=== PATIENT | female | born 1950 | race Caucasian/White ===

== ENCOUNTER → 2022-10-13 | Outpatient (CLI) | payer MEDICARE, SELFPAY ==
[2022-10-13 07:21] LABS: Hematocrit 39.5 % (37-47); Mean Corp Hgb Conc 32.9 g/dL (32-36); Mean Corpuscular Volume 94.3 fL (81-99); Platelet Count 250 K/mm3 (150-450); RBC Distribution Width CV 13.1 % (11.6-14.6); Red Blood Count 4.19 M/mm3 (4.2-5.4); White Blood Count 6.9 K/mm3 (4.4-11.0)
[2022-10-13 08:24] LABS: Vitamin D,25 Hydroxy 51.9 ng/mL
[2022-10-13 08:27] LABS: AST(SGOT) 22 U/L (15-37); Alanine Aminotransfer ALT/SGPT 16 U/L (13-56); Albumin, Serum 3.5 g/dL (3.2-5.0); Alkaline Phosphatase 125 U/L (45-117); Anion Gap 7 (5-15); BUN 25 mg/dL (7-18); BUN/Creat Ratio 13.2 RATIO (10-20); Calcium,Total 9.2 mg/dL (8.5-10.1); Chloride 108 mmol/L (98-107); Cholesterol 231 mg/dL (200); Creatinine, Serum 1.89 mg/dL (0.55-1.02); EST Glomerular Filtration Rate 28 mL/min (>60); Est Glom Filt Rate - Afr Amer 33 mL/min (>60); Globulin 3.5 g/dL (2.2-4.2); Glucose 110 mg/dL (74-106); High Density Lipoprotein 45 mg/dL; Potassium 4.1 mmol/L (3.5-5.1); Sodium Level 141 mmol/L (136-145); T4 Free Direct 1.24 ng/dL (0.76-1.46); Thyroid Stim Hormone (TSH) 2.21 uIU/mL (0.358-3.74); Triglycerides 230 mg/dL; Very Low Density Lipoprotein 46 mg/dL (5-40)
== END | disposition home or self-care (01) ==
PROVIDERS: PCP Nurse Practitioner Adult Health; Referring Provider Nurse Practitioner Adult Health; Visit Provider Nurse Practitioner Adult Health
DX: I12.9 Hypertensive chronic kidney disease with stage 1 through stage 4 chronic kidney disease, or unspecified chronic kidney disease (principal); N18.4 Chronic kidney disease, stage 4 (severe); E55.9 Vitamin D deficiency, unspecified; E03.9 Hypothyroidism, unspecified
CPT/HCPCS: 36415; 80053; 80061; 82306; 84439; 84443; 85027

== ENCOUNTER → 2022-10-19 | Outpatient (CLI) | payer MEDICARE, SELFPAY ==
--- NOTE | 2022-10-19 07:08 | US_ITS ---
INDICATION: Cirrhosis of the liver EXAMINATION: Ultrasound US Abdomen Limited (quadrant) TECHNIQUE: Esparza scale and color doppler imaging was performed of the right upper quadrant. COMPARISON: None. FINDINGS: LIVER: The liver parenchyma is heterogenous. The liver contour is nodular. No focal hepatic lesion. There is no free fluid. GALLBLADDER AND BILIARY TREE: No shadowing gallstone, pericholecystic fluid or gallbladder wall thickening is demonstrated. The proximal common bile duct measures 5.7 mm, which is within normal limits for the patient''s age. Songraphic Rodriguez''s sign: Negative. PANCREAS: No focal abnormality is demonstrated in the pancreas. No pancreatic ductal dilatation. RIGHT KIDNEY: The right kidney measures 9.0 cm. There is no hydronephrosis. There are right renal cysts measuring up to 3.6 cm. US/Abdomen Limited IMPRESSION: Cirrhotic appearing liver. Right renal cysts. Electronically Signed: Lis Rodrigues MD at 8:19 EDT ,
== END | disposition home or self-care (01) ==
LOC: OPUS 07:07 → US 07:09
PROVIDERS: PCP Nurse Practitioner Adult Health; Referring Provider Nurse Practitioner Adult Health; Visit Provider Nurse Practitioner Adult Health
DX: K74.69 Other cirrhosis of liver (principal)
CPT/HCPCS: 76705

== ENCOUNTER → 2022-11-03 | Outpatient (CLI) | payer MEDICARE, SELFPAY ==
--- NOTE | 2022-11-03 10:45 | BD_ITS ---
STUDY: DUAL ENERGY X-RAY ABSORPTIOMETRY / DXA REASON FOR EXAM: Female, 72 years old. M81.0 TECHNIQUE: Bone Mineral Density (BMD) measurements of lumbar spine and left hip were obtained. COMPARISON: None. FINDINGS: Lumbar Spine (L1-L4): g/cm2 (1.098) / T-score (0.5) / Z-score (2.8) Findings are suggestive of normal bone density with a low fracture risk. Left Femur Total: g/cm2 (0.706) / T-score (-1.9) / Z-score (-0.2) Left Femoral Neck: g/cm2 (0.614) / T-score (-2.1) / Z-score (-0.1) BD/Dexa Bone Density Study IMPRESSION: The patient is considered osteopenic as outlined below according to World [employer] Organization (WHO) criteria with a moderate fracture risk. Reference Information: The T-score is the number of standard deviations above or below the standard which is normal for young adults at their peak bone mineral density. The World Health Organization (WHO) interprets the T-scores as follows: Above -1 Normal bone density Between -1 and -2.5 Osteopenia Equal to / or below -2.5 Osteoporosis As a practical clinical guideline, osteopenia may be graded as follows: Mild -1 through -1.5 Moderate -1.6 through -2.0 Severe -2.1 through -2.4 The Z-score is the number of standard deviations above or below age-matched controls. A Z-score of less than -1.5 would be considered abnormal. References: 1. NIH Osteoporosis and Related Bone Diseases www osteo.org 2. International Society for Clinical Densitometry www iscd.org 3. National Osteoporosis Foundation www nof.org Electronically Signed: Bucky Sutton MD at 10:48 EDT ,
== END | disposition home or self-care (01) ==
LOC: OPBD 10:34
PROVIDERS: PCP Nurse Practitioner Adult Health; Referring Provider Nurse Practitioner Adult Health; Visit Provider Nurse Practitioner Adult Health
DX: M81.0 Age-related osteoporosis without current pathological fracture (principal)
CPT/HCPCS: 77080

== ENCOUNTER 2024-07-25 15:10 | Emergency (ER) | payer MEDICARE, SELFPAY ==
[2024-07-25 15:12] VITALS: BP 182/100; PULSE 89; RESP 19; TEMP 36.4; O2SAT 97; BMI 22.7
--- NOTE | 2024-07-25 15:30 | RAD_ITS ---
PROCEDURE: CHEST PA AND LATERAL REASON FOR EXAM: Shortness of breath. TECHNIQUE: Frontal and lateral views of the chest. COMPARISON: None. FINDINGS: Lungs: Lungs clear of pneumonia and congestion. Pleura: No pleural effusions, thickening, or pneumothorax. Heart: Normal in size and configuration. Mediastinum/Mandi: Unremarkable. Great vessels: Unremarkable. Bones/soft tissues: Unremarkable. RAD/Chest PA and Lateral IMPRESSION: No active cardiopulmonary disease.. Reading Location: [place] [id number]
[2024-07-25] MEDS: Ipratropium/Albuterol Sulfate 3 ML AMPUL.NEB INHALATION (15:50)
[2024-07-25 15:54] VITALS: PULSE 94; RESP 22
[2024-07-25 18:38] LABS: Absolute Lymphocyte Count 0.44 X10^3/uL (0.83-4.51); Absolute Neutrophil Count 3.7 X10^3/uL (2.0-7.7); Basophil# 0.02 X10^3/uL; Basophil% 0.4 % (0-1); Eosinophil# 0.08 X10^3/uL; Eosinophils% 1.6 % (0-5); Hematocrit 35.4 % (37-47); Hemoglobin 11.4 g/dL (12.0-15.0); Lymphocyte # 0.44 X10^3/ul (0.83-4.51); Lymphocyte % 8.9 % (19-41); Mean Corp Hgb Conc 32.2 g/dL (32-36); Mean Corpuscular Hgb 29.3 pg (27.0-32.0); Mean Platelet Vol. 10.8 fl (6.2-12.0); Monocyte# 0.73 X10^3/uL; Monocyte% 14.7 % (0-10); NRBC Flagged by Analyzer 0 % (0-5); Neutrophil # 3.67 X10^3/uL (2.7-7.7); POSITIVE DIFFERENTIAL YES; Platelet Count 173 K/mm3 (150-450); RBC Distribution Width CV 13.5 % (11.6-14.6); RBC Distribution Width SD 45.4 fl (35.1-43.9); Red Blood Count 3.89 M/mm3 (4.2-5.4)
[2024-07-25 19:00] LABS: Anion Gap 13 (5-15); BUN 23 mg/dL (4-19); BUN/Creat Ratio 9.7 RATIO (10-20); Calcium,Total 9.7 mg/dL (7.6-11.0); Carbon Dioxide 21.5 mmol/L (21.0-32.0); Chloride 103 mmol/L (98-108); Creatinine, Serum 2.31 mg/dL (0.70-1.20); EST Glomerular Filtration Rate 21 (>60); Estimated Creatinine Clearance 20.15 ml/min (50-250); Glucose 106 mg/dL (70-99); Potassium 4.8 mmol/L (3.3-5.1); Sodium Level 138 mmol/L (133-145)
[2024-07-25 19:12] VITALS: BP 138/98; PULSE 92; RESP 18; O2SAT 94
[2024-07-25 19:14] VITALS: O2SAT 94
[2024-07-25] MEDS: predniSONE 20 MG Tablet 60 MG PO (19:38)
--- NOTE | 2024-07-25 19:56 | ED.VIS.DYS ---
HPI History of Present Illness Chief Complaint: Shortness of Breath Informant: patient Narrative Narrative: History of COPD and tobacco use 1 day history increasing nonproductive cough and wheeze. Reports mild chills and myalgias. No vomiting or diarrhea. No urinary symptoms. Denies diabetes history. Denies sick contacts. Prior similar symptoms: Yes [facility] Medical History COPD (chronic obstructive pulmonary disease) Home Medications ?Medication ?Instructions ?Recorded ?Last Taken ?Type oseltamivir 30 mg capsule (Tamiflu) 30 mg PO DAILY 4 days #4 caps 07/25/24 Unknown Rx prednisone 20 mg tablet 60 mg (3 x 20 mg) PO DAILY #12 07/25/24 Unknown Rx TABLETS Allergy/AdvReac Type Severity Reaction Status Date / Time Sulfa (Sulfonamide Allergy Mild Upset Verified 07/25/24 15:11 Antibiotics) Stomach Social History Smoking Status: Current every day smoker tobacco type: cigarettes ROS ROS ED Constitutional Constitutional ED: Reports chills; Denies fever(s) or sweats ENT ENT ED: Denies sore throat Cardiovascular Cardiovascular: Denies chest pain, leg edema, palpitations or racing heartbeat Respiratory/Chest Respiratory/Chest: Reports cough and dyspnea; Denies dyspnea on exertion Gastrointestinal Gastrointestinal: Denies abdominal pain, diarrhea, nausea or vomiting Genitourinary Genitourinary ED: Denies dysuria, hematuria or urinary frequency Musculoskeletal Musculoskeletal: Reports myalgias; Denies back pain, extremity pain or neck pain Integumentary Denies rash or wounds Neurologic Neurologic: Denies headache(s), paresthesias or weakness EXAM Physical Exam Const Vital Signs: 07/25/24 15:12 07/25/24 15:54 07/25/24 19:12 Temperature 97.5 F L Temperature Source Temporal Pulse Rate 89 94 92 Respiratory Rate 19 H 22 H 18 Respiratory Effort Respiratory Depth Respiratory Pattern Tachypnea Blood Pressure 182/100 H 138/98 H Blood Pressure Mean 127 111 Pulse Ox 97 94 Oxygen Delivery Method Room Air Room Air 07/25/24 19:14 Temperature Temperature Source Pulse Rate Respiratory Rate Respiratory Effort Normal Non-Labored Respiratory Depth Normal Respiratory Pattern Normal Blood Pressure Blood Pressure Mean Pulse Ox Oxygen Delivery Method Room Air Positive well nourished and well developed General Appearance ED: well developed and NAD HEENT Reports moist mucous membranes normocephalic and atraumatic Eyes General Eye ED: Yes normal appearance of both eyes Neck full ROM Chest Wall Chest: Negative for tenderness Resp normal respiratory effort and normal air movement Effort and Inspection: symmetric chest movement; Negative for respiratory distress Cardio regular rate, regular rhythm and no murmurs Peripheral Pulses: pulses 2+ throughout GI normal to inspection, nondistended, normoactive bowel sounds and non-tender Palpation: Negative for guarding or rebound tenderness present Extremity normal to inspection General Extremety ED: Negative for edema or tenderness General Extremity: Negative for edema Neuro oriented x3 and no sensory deficits noted Sensorium / Orientation: awake and alert Skin no rashes or lesions noted and no wounds MDM MDM MDM Narrative Medical decision making narrative: Interventions / MDM: Differential diagnosis: COPD history, bronchospasms, viral syndrome, influenza Diagnosis considered but do not suspect: N/A My EKG interpretation: Sinus rhythm rate of 93, no ST or T wave changes. Imaging independently reviewed and interpreted by myself: 2 view chest x-ray: No acute process also read by radiology. External documents reviewed: N/A Test considered but not ordered:N/A ED course: Due to busy department patient's workup initiated triage. Per nursing showed wheezing therefore aerosol treatments were ordered. Chest x-ray negative labs were all stable creatinine 2.31 she has history of CKD. Last creatinine 1.9. She has no diabetes history. Currently no wheezing improved after aerosols. Will start prednisone. Will order viral swabs. 2100: Flu a positive. COVID RSV negative. Clinically stable. She is dispensed with the albuterol MDI. Continue steroids for 4 more days. Will start Tamiflu symptom started today, renal dosing with her CKD for daily medicines. Outpatient follow-up with her doctor with return precautions. All questions were answered. Re-evaluation: stable Disposition discussed with patient/family/significant other: Patient Case discussed with consulting clinician: N/A This note was generated with Image[employer]rief dictation software. It may contain incorrect words, spelling, and punctuation that were not noted in checking the note before signing. Lab Data Attestation: I reviewed the patient's lab results. Labs: Laboratory Results - last 24 hr 07/25/24 18:14 WBC 5.0 RBC 3.89 L Hgb 11.4 L Hct 35.4 L MCV 91.0 MCH 29.3 MCHC 32.2 RDW Std Deviation 45.4 H RDW Coeff of Hayden 13.5 Plt Count 173 MPV 10.8 Immature Gran % (Auto) 0.400 Neut % (Auto) 74.0 H Lymph % (Auto) 8.9 L Shelby % (Auto) 14.7 H Eos % (Auto) 1.6 Baso % (Auto) 0.4 Absolute Neuts (auto) 3.7 Absolute Lymphs (auto) 0.44 L Nucleated RBC % 0 Sodium 138 Potassium 4.8 Chloride 103 Carbon Dioxide 21.5 Anion Gap 13 BUN 23 H Creatinine 2.31 H Estim Creat Clear Calc 20.15 L Est GFR (MDRD) Non-Af 21 L BUN/Creatinine Ratio 9.7 L Glucose 106 H Calcium 9.7 Radiography Diagnostic Testing: Clinical Impression(s) from Imaging Studies Chest X-Ray 07/25/24 15:30 IMPRESSION: No active cardiopulmonary disease.. Reading Location: [place] [address] Discharge Plan Triage Chief Complaint: Shortness of Breath ED Provider: Vlad Ortiz Dx/Rx/DC Orders Clinical Impression: Influenza A, COPD exacerbation, CKD (chronic kidney disease) Instructions: COPD Controlled Breathing Dc, ED Chronic Kidney Disease (CKD), ED Influenza (Adult) Prescriptions: New prednisone 20 mg tablet 60 mg PO DAILY Qty: 12 0RF oseltamivir [Tamiflu] 30 mg capsule 30 mg PO DAILY 4 Days Qty: 4 0RF Rx Instructions: next dose 07/26/24 Primary Care Provider: Yenifer Zaragoza NP Referrals: Yenifer Zaragoza NP, [employer] [Primary Care Provider] - 3-5 Days Activity Restrictions/Additional Instructions: Chest x-ray negative. Flu a positive. COVID and RSV negative. Use your inhaler for wheezing. Take prednisone to help with wheezing. Take Tamiflu once a day as prescribed for the next 4 days. Follow-up your doctor. Develop any worsening symptoms, return to ED for reevaluation. Print Language: [place] Disposition Disposition: Home, Self Care Discharge Date/Time: 07/25/24 21:27
--- NOTE | 2024-07-25 20:15 | ED.RN ---
no old ekg
[2024-07-25] MEDS: Albuterol Sulfate 8 gm Inhaler (60 puffs) 2 PUFF INHALATION (21:20)
[2024-07-25] MEDS: Oseltamivir Phosphate 30 MG Capsule PO (21:23)
== END 2024-07-25 21:27 | disposition home or self-care (01) ==
PROVIDERS: Emergency Provider Emergency Medicine; PCP Nurse Practitioner Adult Health; Referring Provider Emergency Medicine; Visit Provider Emergency Medicine
DX: J10.1 Influenza due to other identified influenza virus with other respiratory manifestations (principal); J44.1 Chronic obstructive pulmonary disease with (acute) exacerbation; N18.9 Chronic kidney disease, unspecified; F17.210 Nicotine dependence, cigarettes, uncomplicated
CPT/HCPCS: 71046; 80048; 85025; 87631; 93005; 94640; 99284